=== PATIENT | male | born 1930 ===

== ENCOUNTER 2017-04-01 16:57 | Emergency (ER) | payer BC, MEDICARE ==
[~2017-04-01] VITALS: Ht 182.9 cm; Wt 98.7 kg
[2017-04-01 17:13] VITALS: BP 142/73; PULSE 69; RESP 16; TEMP 97.8; O2SAT 96
[2017-04-01] MEDS ORDERED: ATOR10TA15 PO (17:42)
[2017-04-01] MEDS ORDERED: ASPI81CH6 CHEW (17:42)
[2017-04-01] MEDS ORDERED: METO25TA3 PO (17:42)
[2017-04-01] MEDS ORDERED: TAMS0.4C4 PO (17:42)
--- NOTE | 2017-04-01 17:46 | PD ---
HPI Chief Complaint: Nosebleed Time Seen by Provider: 17:25 Travel History International Travel<30 days: No Contact w/Intl Traveler<30days: No Traveled to known affect area: No History of Present Illness HPI SINCE LAST NIGHT PATIENT HAS HAD HIS LEFT NOSTRIL BLEEDING, OOZING,NO PULSATILE SQUIRTING, PATIENT STATES THAT PRESSURE SEEMS TO HELP STOP BLEEDING BUT ONLY TRANSIENTLY...PATIENT TAKES ASPIRIN (AND NO OTHER BLOOD THINNER PER HISTORY) PT STATES THAT HE FOLLOWS UP WITH DR ULLOA [facility] Past Medical History Hx Anticoagulant Therapy: Yes (asa 81mg) Cardiovascular Problems: Yes (htn on meds) Social History Tobacco Use: No Allergies-Medications (Allergen,Severity, Reaction): Coded Allergies: No Known Allergies (Unverified , 04/01/17) Review of Systems Except as stated in HPI: all other systems reviewed are Neg General / Constitutional: No: Fever Eyes: No: Visual changes HENT: Positive: Nosebleed Cardiovascular: No: Chest Pain or Discomfort Respiratory: No: Shortness of Breath Gastrointestinal: No: Abdominal Pain Genitourinary: No: Dysuria Musculoskeletal: No: Pain Skin: No Rash Neurologic: No: Weakness Psychiatric: No: Depression Endocrine: No: Polydipsia Hematologic/Lymphatic: No: Easy Bruising Physical Exam Narrative GENERAL: SKIN: Warm and dry. HEAD: Atraumatic. Normocephalic. EYES: Pupils equal and round. No scleral icterus. No injection or drainage. ENT: No nasal bleeding or discharge. Mucous membranes pink and moist. LEFT ANTERIOR EPISTAXIS NOTED, NO POSTERIOR OROPHARYNX BLEEDING. NECK: Trachea midline. No JVD. CARDIOVASCULAR: Regular rate and rhythm. RESPIRATORY: No accessory muscle use. Clear to auscultation. Breath sounds equal bilaterally. GASTROINTESTINAL: Abdomen soft, non-tender, nondistended. Hepatic and splenic margins not palpable. MUSCULOSKELETAL: Extremities without clubbing, cyanosis, or edema. No obvious deformities. NEUROLOGICAL: Awake and alert. No obvious cranial nerve deficits. Motor grossly within normal limits. Five out of 5 muscle strength in the arms and legs. Normal speech. PSYCHIATRIC: Appropriate mood and affect; insight and judgment normal. Data Data Last Documented VS Vital Signs Date Time Temp Pulse Resp B/P (MAP) Pulse Ox O2 Delivery O2 Flow Rate FiO2 04/01/17 17:13 97.8 69 16 142/73 (96) 96 MDM Medical Decision Making Medical Screen Exam Complete: Yes Emergency Medical Condition: Yes Medical Record Reviewed: Yes Differential Diagnosis ANTERIOR EPISTAXIS V POSTERIOR EPISTAXIS Narrative Course BASED ON EXAM C/W ANTERIOR VENOUS EPISTAXIS, WHICH STOPPED AFTER PLACEMENT OF RHINOROCKET Procedures Procedure Narrative LEFT NARES PREPARED AND PLACED A 5.5CM RHINOROCKET IN LEFT NARES, INFLATED TO 8 CC OF AIR VIA SYRINGE Diagnosis Primary Impression: LEFT ANTERIOR EPISTAXIS S/P RHINOROCKET Referrals: Kip Ulloa MD ON MONDAY TO HAVE YOUR RHINOROCKET REMOVED Patient Instructions: General Instructions, Nosebleed (GEN) Disposition: 01 DISCHARGE HOME Condition: Stable Torsten Olea MD Apr 01, 2017 17:46
== END 2017-04-01 18:14 | disposition home or self-care (01) ==
LOC: PHED 16:57
DX: R04.0 Epistaxis (principal); I10 Essential (primary) hypertension; Z79.82 Long term (current) use of aspirin
CPT/HCPCS: 30901